=== PATIENT | male | born 1980 | race Caucasian/White ===

== ENCOUNTER 2017-01-06 18:29 | Emergency (ER) | payer OTHER ==
[~2017-01-06] VITALS: Ht 195.6 cm; Wt 132.9 kg
[2017-01-06 18:35] VITALS: TEMP 36.8; O2SAT 97; Ht 195.6 cm; Wt 132.9 kg
[2017-01-06] MEDS ORDERED: SODIUM CHLORIDE 0.9% 1000ML 1,000 ML IV STA (18:51)
--- NOTE | 2017-01-06 19:20 | DIAGNOSTIC IMAGING REPORT ---
CHEST ONE VIEW PORTABLE CLINICAL HISTORY: SEIZURE mental status change COMPARISON STUDY: No previous studies for comparison. FINDINGS: The bones soft tissues and hemidiaphragms are normal. The cardiomediastinal silhouette is normal. The lungs are clear. The pulmonary vasculature is normal. IMPRESSION: Negative chest. The above report was generated using voice recognition software. It may contain grammatical, syntax or spelling errors. Electronically signed by: Juan Antonio Seth M.D. 01/06/2017 7:19 PM Dictated Date/Time: 01/06/2017 7:19 PM
[2017-01-06 19:24] LABS: MANUAL MICROSCOPIC REQUIRED? NO; REVIEW REQ? NO; URINE APPEARANCE CLEAR (CLEAR); URINE BILIRUBIN NEG (NEG); URINE COLOR YELLOW; URINE EPITHELIAL CELL AUTO 20-30 /lpf (0-5); URINE NITRITE NEG (NEG); URINE PH 5.5 (4.5-7.5); URINE SPECIFIC GRAVITY 1.021 (1.000-1.030); UROBILINOGEN NEG (NEG)
[2017-01-06] MEDS ORDERED: KPP/1000 PO (19:34)
[2017-01-06 19:50] LABS: BASO % 0.1 %; BASO ABS # 0.01 K/uL (0-0.2); COMPLETE YES; EOS % 0.6 %; HEMATOCRIT 44.2 % (42-52); IG% 0.9 %; LYMPH ABS # 0.67 K/uL (1.2-3.4); MEAN CELL VOLUME 75.6 fL (80-100); MEAN CORPUSCULAR HEMOGLOBIN 25.3 pg (25-34); MEAN CORPUSCULAR HGB CONC 33.5 g/dl (32-36); MEAN PLATELET VOLUME 10.1 fL (7.4-10.4); MONO % 5.6 %; NEUT % 85.8 %; PLATELET COUNT 278 K/uL (130-400); RED BLOOD COUNT 5.85 M/uL (4.7-6.1); WHITE BLOOD COUNT 9.62 K/uL (4.8-10.8)
[2017-01-06 19:59] LABS: PARTIAL THROMBOPLASTIN RATIO 1.1; PROTHROMBIN TIME (PATIENT) 10.9 SECONDS (9.0-12.0)
--- NOTE | 2017-01-06 20:03 | DIAGNOSTIC IMAGING REPORT ---
HEAD WITHOUT CONTRAST (CT) CT DOSE: 1842.80 mGy.cm HISTORY: Mental status change SEIZURE TECHNIQUE: Multiaxial CT images of the head were performed without the use of intravenous contrast. A dose lowering technique was utilized adhering to the principles of ALARA. Comparison: None. Findings: The paranasal sinuses and mastoid air cells are clear. The calvarium and skull base are intact. The ventricles and sulci are within normal limits. There is no mass, hematoma, midline shift, or acute infarct. Impression: No acute intracranial abnormality. The above report was generated using voice recognition software. It may contain grammatical, syntax or spelling errors. Electronically signed by: Juan Antonio Seth M.D. 01/06/2017 8:01 PM Dictated Date/Time: 01/06/2017 8:00 PM
[2017-01-06 20:07] LABS: BUN/CREATININE RATIO 11.6 (10-20); CALCIUM 8.8 mg/dl (8.5-10.1); CREATININE 0.97 mg/dl (0.60-1.40); MAGNESIUM 2.5 mg/dl (1.8-2.4); POTASSIUM 3.5 mmol/L (3.5-5.1)
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
[2017-01-06 20:42] LABS: PHOSPHORUS 1.3 mg/dl (2.5-4.9); THYROID STIMULATING HORMONE 0.82 uIu/ml (0.300-4.500)
[2017-01-06] MEDS ORDERED: POT PHOSPHATE MONOBASIC W/ SOD TAB PO STA (20:42)
[2017-01-06] MEDS ORDERED: POTASSIUM PHOS 3 MMOL/1 ML INFUSION IV STA (20:57)
[2017-01-06] MEDS ORDERED: POTASSIUM PHOSPHATE INJ 30 MMOL in SODIUM CHLORIDE 0.9% 500ML 500 ML IV ONE (21:15)
[2017-01-06] MEDS ORDERED: POTTAB2 PO (22:20)
[2017-01-06 22:29] VITALS: BP 166/103; PULSE 86; O2SAT 97
== END 2017-01-06 22:29 | disposition home or self-care (01) ==
LOC: EDBD 18:29 → C.EDC 18:31
DX: G40.309 Generalized idiopathic epilepsy and epileptic syndromes, not intractable, without status epilepticus (principal); E83.39 Other disorders of phosphorus metabolism; F17.210 Nicotine dependence, cigarettes, uncomplicated; Z79.899 Other long term (current) drug therapy